=== PATIENT | female | born 1955 | race American Indian/Alaskan Native ===

== ENCOUNTER 2016-06-06 12:37 | Outpatient (CLI) | payer OTHER ==
--- NOTE | 2016-06-06 15:27 | Mammography Report ---
BILATERAL DIGITAL SCREENING MAMMOGRAM with CAD : 06/06/16 12:37:00 CLINICAL: Routine screening. COMPARISON:None available. FINDINGS: The breasts are heterogeneously dense, which may obscure small masses.Bilateral benign vascular calcifications. No mass, architectural distortion or suspicious calcifications. IMPRESSION: No mammographic evidence of malignancy. BI-RADS CATEGORY: 2 -- Benign RECOMMENDATION: Routine mammographic screening in one year. COMMENT: Patient follow-up letters are generated by our [employer] application.
== END 2016-06-06 12:38 | disposition home or self-care (01) ==
LOC: SPVWC 12:37
PROVIDERS: ATTEND Internal Medicine
DX: Z12.31 Encounter for screening mammogram for malignant neoplasm of breast (principal)
CPT/HCPCS: 77067; G0202

== ENCOUNTER 2018-11-06 12:46 | Emergency (ER) | payer OTHER ==
--- NOTE | 2018-11-06 13:13 | Event Note ---
ED Screening Note Date of service: 11/06/18 Time: 13:09 ED Screening Note: This is a 63 y.o. F. that presents to the ER from PCP Dr. Bruce with elevated blood pressure. Patient reports elevation of blood pressure for 1 week. PMH HTN, Hyperthyroidism, RA Denies visual changes, palpitations, chest pain, headache, and diaphoresis. Current marijuana smoker This initial assessment/diagnostic orders/clinical plan/treatment(s) is/are subject to change based on patients health status, clinical progression and re- assessment by fellow clinical providers in the ED. Further treatment and workup at subsequent clinical providers discretion. Patient/guardian urged not to elope from the ED as their condition may be serious if not clinically assessed and managed. Initial orders include:
[2018-11-06] MEDS ORDERED: CATAPRES PO ONE (14:19)
--- NOTE | 2018-11-06 14:23 | Emergency Department Report ---
ED General Adult HPI - General Chief complaint: High BP Stated complaint: HBP Time Seen by Provider: 11/06/18 13:09 Source: patient Mode of arrival: Ambulatory Limitations: No Limitations - History of Present Illness Initial comments: This is a 63-year-old female with a history of TIA 2 months ago as well as hyper tension on medication Who presents to ED today sent by family care physician due to elevated blood pressure. Patient states this morning when she woke up her blood pressure was high so she took her blood pressure medication. Patient states that an hour or 2 later she called her primary care physician who told her to take a nontender 2 and going to the ER. Patient presents for evaluation. She denies chest pain, headache, shortness of breath, visual disturbances or visual loss. Patient states she takes losartan 100 mg daily - Related Data Allergies Allergy/AdvReac Type Severity Reaction Status Date / Time No Known Allergies Allergy Unverified 11/06/18 13:14 ED Review of Systems ROS: Stated complaint: HBP Other details as noted in HPI Comment: All other systems reviewed and negative ED Past Medical Hx - Past Medical History Hx Hypertension: Yes Additional medical history: hyperthyroidism, RA - Social History Smoking Status: Never Smoker Substance Use Type: Marijuana ED Physical Exam - General Limitations: No Limitations General appearance: alert, in no apparent distress - Head Head exam: Present: atraumatic, normocephalic - Eye Eye exam: Present: normal appearance - ENT ENT exam: Present: mucous membranes moist - Neck Neck exam: Present: normal inspection - Respiratory Respiratory exam: Present: normal lung sounds bilaterally. Absent: respiratory distress - Cardiovascular Cardiovascular Exam: Present: regular rate, normal rhythm. Absent: systolic murmur, diastolic murmur, rubs, gallop - GI/Abdominal GI/Abdominal exam: Present: soft, normal bowel sounds - Extremities Exam Extremities exam: Present: normal inspection - Back Exam Back exam: Present: normal inspection - Neurological Exam Neurological exam: Present: alert, oriented X3 - Psychiatric Psychiatric exam: Present: normal affect, normal mood - Skin Skin exam: Present: warm, dry, intact, normal color. Absent: rash ED Course Vital Signs 11/06/18 11/06/18 11/06/18 13:09 14:29 14:35 Temperature 98.2 F Pulse Rate 65 124 H Respiratory 20 Rate Blood Pressure 181/91 Blood Pressure 174/93 193/111 [Left] Blood Pressure 193/111 [Right] O2 Sat by Pulse 98 Oximetry 11/06/18 15:46 Temperature Pulse Rate 73 Respiratory Rate Blood Pressure Blood Pressure [Left] Blood Pressure 99/66 [Right] O2 Sat by Pulse 98 Oximetry ED Medical Decision Making - Lab Data Result diagrams: 11/06/18 14:34 11/06/18 14:34 - Medical Decision Making 63-year-old female presents with high blood pressure. Patient has a chronic history of hypertension. All labs are within normal limits. Clonidine given in ED to reduce blood pressure. Disposition follow-up with her primary care physician Dr. Ced Campos about blood pressure management and possibly increase in her blood pressure dose. Vital signs are normal patient is in no acute distress patient is sitting comfortable in the ED room Blood pressure reduced prior to ED discharge. Critical care attestation.: If time is entered above; I have spent that time in minutes in the direct care of this critically ill patient, excluding procedure time. ED Disposition Clinical Impression: Chronic hypertension, Uncontrolled hypertension Disposition: DC-01 TO HOME OR SELFCARE Is pt being admited?: No Does the pt Need Aspirin: No Condition: Stable Instructions: Hypertension (ED) Additional Instructions: Make sure to follow up with the primary care physician as discussed. Take all your medications as you've been prescribed. If you have any worsening symptoms or develop new symptoms please return to ED immediately. Forms: Accompanied Note, Work/School Release Form(ED) Time of Disposition: 14:23
[2018-11-06 14:50] LABS: Basophils % (Auto) 0.2 % (0.0-1.8); Eosinophils # (Auto) 0.1 K/mm3 (0.0-0.4); Eosinophils % (Auto) 3.2 % (0.0-4.3); Hematocrit 38.2 % (30.3-42.9); Hemoglobin 12.6 gm/dl (10.1-14.3); Lymphocytes # (Auto) 0.5 K/mm3 (1.2-5.4); Lymphocytes % (Auto) 13.3 % (13.4-35.0); Mean Corpuscular HGB Conc 33 % (30-34); Mean Corpuscular Volume 97 fl (79-97); Monocytes # (Auto) 0.1 K/mm3 (0.0-0.8); Monocytes % (Auto) 3.1 % (0.0-7.3); Platelet Count 197 K/mm3 (140-440); Red Blood Count 3.93 M/mm3 (3.65-5.03); Red Cell Distribution Width 16.7 % (13.2-15.2)
[2018-11-06 15:13] LABS: BUN/Creatinine Ratio 22; Blood Urea Nitrogen 11 mg/dL (7-17); Calcium 9.1 mg/dL (8.4-10.2); Hemolysis Index 4
[2018-11-06 15:47] VITALS: BP 99/66
== END 2018-11-06 16:09 | disposition home or self-care (01) ==
LOC: ED 12:46
DX: I10 Essential (primary) hypertension (principal); F12.10 Cannabis abuse, uncomplicated; E03.9 Hypothyroidism, unspecified
CPT/HCPCS: 36415; 80048; 83880; 85025; 99283